=== PATIENT | male | born 1940 | race Caucasian/White ===

== ENCOUNTER 2016-06-24 12:57 | Inpatient (IN) ==
--- NOTE | 2016-06-24 13:43 | EKG Report ---
Stationary ECG Study [facility] ER Test Date: 06/24/2016 1:14:07 PM Pat Name: ENMA CLEARY Department: Room: Gender: M Recruiter Coordinator: : 1940 Requested by: Ned Mireles Order Number: [id number] Reading MD: LUCA ARGUELLES Intervals Coleman Rate: 61 P: -7 NH: 128 QRS: 11 QRSD: 90 T: 37 QT: 360 QTc: 362 Interpretive Statements SINUS RHYTHM at 61 BPM NONSPECIFIC T-WAVE ABNORMALITY Electronically Signed On 06-27-16 16:53:39 CDT by LUCA ARGUELLES [email or web address]
[2016-06-24] MEDS ORDERED: SODIUM CHLORIDE 0.9% 1,000 ML IV STA (13:44)
[2016-06-24 13:50] LABS: Basophils % 0.1 % (0.0-0.8); Eosinophils % 0.1 % (0.00-10.9); Hematocrit 32.4 VOL% (42.0-52.0); Hemoglobin 10.5 GM/DL (14.0-18.0); Immature Granulocytes % 0.8 %; Immature Granulocytes Absolute 0.06 #; Lymphocytes # 0.5 10*3/uL (1.4-4.0); Lymphocytes % 6.6 % (21.2-54.2); Mean Corpuscular HGB Conc 32.4 GM/DL (32-36); Mean Corpuscular Hemoglobin 32 PG (27-34); Mean Corpuscular Volume 97.3 FL (87-102); Mean Platelet Volume 10.2 FL (9.6-12.0); Monocytes # 0.6 10*3/uL (0.11-0.8); Neutrophils # 6.2 10*3/uL (1.4-7.4); Neutrophils % 84.4 % (38.7-73.9); Platelet Count 161 T/CUMM (130-400); Red Blood Count 3.33 MC/CUMM (3.8-5.5); Red Cell Distribution Width 14.4 % (9.3-17.3); White Blood Count 7.4 T/CUMM (4-12)
--- NOTE | 2016-06-24 13:59 | Emergency Department Note ---
Tony Caruso Hilary, am scribing for, and in the presence of, Ned Flanagan MD 13:40. Masha Caruso Charles R, MD, personally performed the services described in this documentation, ascribed by Betzaida Jimenez in my presence, and it is both accurate and complete [id number] . Arrival - Arrival Chief Complaint: Non-Specific Stated Complaint: failure to thrive, hyperglycemia, ED Nursing Triage Note: His son reports decrease eating times one week. He reports his father is more sleepy than usual and not making eye contact when he is spoke to. He has a history of Dementia and does not communicate appropriately, verbally. He reports his glucose at home was 437 at home. He was taken off Metformin years ago; Mode of Arrival: Stretcher Limitations: Altered Mental Status Source: Family (son), RN Notes Reviewed Time Seen by Provider: 06/24/16 13:23 - History of Present Illness HPI Narrative: Pt is a 75 y/o male brought to the ED via EMS for c/o decreased eating which onset a week. History is limited due to the patient having dementia and not speaking, but his son is in the room and gives the history. Pts son states that he has been eating less and earlier this weekend he stopped eating all together. He states that he pretty much sleeps all the time, he doesn't walk, or talk. 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 During exam pt was resisting commands and not responding to questions in any way. Onset (ago): week(s) Allergies/Adverse Reactions: Allergies Allergy/AdvReac Type Severity Reaction Status Date / Time Penicillins Allergy Unknown/Unable Verified 09/27/14 10:13 to obtain Shellfish Allergy Unknown/Unable Verified 09/27/14 10:13 to obtain Home Medications: Home Medications Medication Instructions Recorded Confirmed Type Amlodipine/Atorvastatin 1 tablet PO DAILY 09/27/14 09/27/14 History [Amlodipine-Atorvast 2.5-10 mg] Atorvastatin [Lipitor] 20 mg PO BEDTIME 09/27/14 09/27/14 History Donepezil HCl 10 mg PO BEDTIME 09/27/14 09/27/14 History Escitalopram [Lexapro] 20 mg PO DAILY 09/27/14 09/27/14 History Gabapentin Cap/Tab [Neurontin 100 mg PO BID 09/27/14 09/27/14 History Cap/Tab] HYDROcodone/ACETAMIN 10-325 [[place] 1 tablet PO BID PRN 09/27/14 09/27/14 History 10-325] Modafinil 100 mg PO AC BREAKFAST 09/27/14 09/27/14 History Omeprazole [Prilosec] 20 mg PO DAILY 09/27/14 09/27/14 History Ondansetron Odt Tab [Zofran Odt] 4 mg PO Q6H PRN #6 tablet 09/27/14 Rx Topiramate [Topamax] 50 mg PO DAILY 09/27/14 09/27/14 History Trazodone HCl 100 mg PO BEDTIME 09/27/14 09/27/14 History metroNIDAZOLE TAB [Flagyl Tab] 500 mg PO TID 10 Days 09/27/14 Rx Review of System - Review of System ROS unobtainable: due to dementia 12 point system: reviewed and no additional remarkable complaints except as stated - Review of System Constitutional: Present: weight loss, other (Loss of appetite) Medical,Surgical,& Family Hx - Medical History Cardio: History of: Hypertension Endocrine: History of: Diabetes Mellitus (NIDDM) - Social History Smoking Status: Never smoker Frequency of Alcohol Use: None Type of Drug Use: None Exam Vital Signs: Vital Signs Temperature 98.6 F 06/24/16 13:09 Pulse Rate 66 06/24/16 13:09 Respiratory Rate 14 06/24/16 13:09 Blood Pressure 111/58 06/24/16 13:09 O2 Sat by Pulse Oximetry 99 06/24/16 13:00 - General Exam limited due to: other (Dementia) General appearance: lethargic, other (skinny and dehydrated ) - Head Head exam: Present: atraumatic, normocephalic - Eye Eye exam: Present: normal appearance, PERRL (Pin point pupils), EOMI, other ( Sunken orbitals). Absent: periorbital swelling - ENT ENT exam: Present: mucous membranes dry, other (Yeast on his tongue, poor gag reflex) - Neck Neck exam: Present: full ROM, trachea midline - Chest Chest inspection: Present: symmetric chest wall rise - Respiratory Respiratory exam: Present: normal lung sounds bilaterally - Cardiovascular Cardiovascular exam: Present: normal rhythm, bradycardia - Abdominal Exam Abdominal exam: Present: soft, other (Scaphoid abdomen). Absent: distention - Extremities Exam Extremities exam: Present: full ROM (Resists when legs are lifted up or pulled) - Back Exam Back exam: Present: full ROM - Neurological Exam Neurological exam: Present: CN II-XII intact - Psychiatric Psychiatric exam: Present: flat affect - Skin Skin exam: Present: other (poor skin turgor) Course - Consultations Consultation #1: Hospitalist will admit patient Time: 14:38 Results - Labs CBC & BMP: 06/24/16 13:42 06/24/16 13:42 Lab Results: I have reviewed the patients labs Labs: Laboratory Tests 06/24/16 13:42 WBC 7.4 RBC 3.33 L Hgb 10.5 L Hct 32.4 L Neut % (Auto) 84.4 H Lymph % (Auto) 6.6 L Lymph # (Auto) 0.5 L Disposition Clinical Impression: UTI (urinary tract infection), Failure to thrive, Debility, Confusion, Anorexia , Weight loss Case discussed with: patient, patient's family Disposition: Still a Patient Condition: Guarded Time of Disposition: 14:48
[2016-06-24 14:03] LABS: INR 1.1; PT Patient Result 11.4 SECS
[2016-06-24 14:05] LABS: Apearance,Urine Slightly Hazy (Clear); Bacteria,Urine Occasional /HPF (Few); Bilirubin,Urine Negative (Negative); Blood, Urine Small mg/dL (Negative); Glucose,Urine (UA) >=500 mg/dL (Negative); Ketones,Urine Negative (Negative); Mucus,Urine Occasional /LPF (Occasional); Nitrite,Urine Negative (Negative); Protein,Urine 100 MG/DL; RBC,Urine 11 /HPF (0-4); Urine Color Yellow (Yellow); Urine Specific Gravity 1.016 (1.001-1.035); WBC,Urine 137 /HPF (0-6)
[2016-06-24 14:13] LABS: Ammonia 30 UMOL/L (11-32)
--- NOTE | 2016-06-24 14:16 | XRay Report ---
XR chest 1V portable Indication: Altered mental status. Comparison: Chest x-ray 09/27/2014. Technique: Portable AP chest was performed. Findings: Heart size, mediastinal contour, and hilar structures demonstrate no evidence of acute pathology. Lungs are clear. Bones and soft tissues demonstrate no evidence of acute pathology. Impression: 1. No evidence of acute pathology. 06/24/2016 2:13 PM PROCEDURE INTERPRETED AT [facility] DEPARTMENT OF RADIOLOGY Final Report Signed by: Dr. Renard Murrieta
[2016-06-24 14:19] LABS: Alanine Aminotransferase 66 U/L (16-61); Albumin 2.1 G/DL (3.4-5.0); Alkaline Phosphatase 78 U/L (45-117); Aspartate Amino Transferase 57 U/L (0-37); Bilirubin,Total < 0.39 MG/DL (0.2-1.0); Blood Urea Nitrogen 30 MG/DL (7-18); Calcium 7.9 MG/DL (8.5-10.1); Glucose 257 MG/DL (74-106); Magnesium 2.1 MG/DL (1.8-2.4); Sodium 143 MMOL/L (136-145); Total Protein 5.6 G/DL (6.4-8.3); Troponin I Only < 0.015 NG/ML (0.00-0.045)
--- NOTE | 2016-06-24 14:19 | CT Report ---
Referring physician: Ned Flanagan Exam: CT brain without contrast Date: 06/24/2016 Comparison: None Reason: Alteration of consciousness Technique: Axial images of the head were obtained without the use of contrast. Total DLP was 1286.60 mGy*cm. Findings: Progressive dilatation of the ventricles with no midline displacement. Progressive diffuse cerebral and cerebellar atrophy and several hypodensities. 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 There is no evidence of an acute infarction, recent intracranial hemorrhage or abnormal mass effect. The osseous structures appear intact. The mastoid air cells and visualized paranasal sinuses are clear. Impression: No acute intracranial abnormality is identified. Progressive atrophy and microvascular disease with what may be compensatory dilatation of the ventricles. It is difficult to exclude developing NPH. Chronic left thalamic/basal ganglia lacunar infarcts. The CT exam was performed using one or more of the following dose reduction techniques: Automated exposure control and adjustment of the mA and/or kV according to patient size. PROCEDURE INTERPRETED AT [facility] DEPARTMENT OF RADIOLOGY Final Report Signed by: Dr. Ivette Waldron
[2016-06-24] MEDS ORDERED: LEVOFLOXACIN INJ 500 MG in PREMIX 1 EACH IV STA (14:35)
[2016-06-24] MEDS ORDERED: LEVOFLOXACIN INJ 500 MG in PREMIX 1 EACH IV SCH (15:00)
--- NOTE | 2016-06-24 15:51 | Hospitalist History & Physical ---
Assessment and Plan (1) UTI (urinary tract infection) Status: Acute Assessment and plan: Impression: 1. Possible urinary tract infection. I am somewhat hesitant to make this diagnosis without a fever or leukocytosis in this patient who is incontinent. He may have asymptomatic bacteria in the urine 2. Closed head injury with severe debility 3. Type II DM 4. Hypertension 5. Probable severe malnutrition based on albumin of 2.1 and cachexia 6. Volume depletion Plan: We will obtain cultures and begin empiric antibiotics. Administer IV fluids. Sliding scale for the hyperglycemia. Watch blood pressure closely. I have asked the 2 sons about CODE STATUS. They are going to discuss this with their brother, and try to come up with a decision. This note was completed using [employer] voice recognition software. There may be carbonizer tester errors as a result. Current Visit: Yes Qualifiers: Hematuria presence: without hematuria History of Present Illness Chief complaint: Decrease in level of consciousness History of present illness: Mr. Roa is a 75 year old male He has a history of hypertension and type II DM, and had been on numerous medications for these problems. He also apparently had a smoking history, but all of this changed abruptly in 1986 when he suffered a closed head injury. The sounds report that he has had a gradual diminution of higher cortical functioning, and was diagnosed as having "Alzheimer's" several years ago. Following the head injury, he had a loss of appetite, and was able to discontinue his diabetes medicines as a result of the weight loss. He is continued on the antihypertensives. He had chronic daily headaches that were managed with methadone. He eventually became tired of taking the methadone, and weaned himself off of that. His functional status now is that he spends all day in bed. He is completely dependent on family members for activities of daily living. They report no skin breakdown. About 2 or 3 days ago, he quit eating. His blood sugars have been normal off of all of his medicines, but they were noted to be elevated for the past couple of days. He has not had any fever. He is incontinent of stool and urine, and does not speak much, so it is difficult to elicit any complaints from him. After arrival in the emergency room, he was found to have a "urinary tract infection," and was admitted for management of that. Other pertinent findings on lab testing include mildly elevated transaminases and an albumin of 2.1. He had some lab work about 2 years ago, with normal liver enzymes and a serum albumin of about 3.5. BUN and creatinine at that time were normal, but they are elevated today. Home Medications Medication Instructions Recorded Confirmed Type Amlodipine/Atorvastatin 1 tablet PO DAILY 09/27/14 09/27/14 History [Amlodipine-Atorvast 2.5-10 mg] Atorvastatin [Lipitor] 20 mg PO BEDTIME 09/27/14 09/27/14 History Donepezil HCl 10 mg PO BEDTIME 09/27/14 09/27/14 History Escitalopram [Lexapro] 20 mg PO DAILY 09/27/14 09/27/14 History Gabapentin Cap/Tab [Neurontin 100 mg PO BID 09/27/14 09/27/14 History Cap/Tab] HYDROcodone/ACETAMIN 10-325 [[place] 1 tablet PO BID PRN 09/27/14 09/27/14 History 10-325] Modafinil 100 mg PO AC BREAKFAST 09/27/14 09/27/14 History Omeprazole [Prilosec] 20 mg PO DAILY 09/27/14 09/27/14 History Ondansetron Odt Tab [Zofran Odt] 4 mg PO Q6H PRN #6 tablet 09/27/14 Rx Topiramate [Topamax] 50 mg PO DAILY 09/27/14 09/27/14 History Trazodone HCl 100 mg PO BEDTIME 09/27/14 09/27/14 History metroNIDAZOLE TAB [Flagyl Tab] 500 mg PO TID 10 Days 09/27/14 Rx Allergies Allergy/AdvReac Type Severity Reaction Status Date / Time Penicillins Allergy Unknown/Unable Verified 09/27/14 10:13 to obtain Shellfish Allergy Unknown/Unable Verified 09/27/14 10:13 to obtain Medical,Surgical,& Family Hx - Medical History Cardio: History of: Hypertension Endocrine: History of: Diabetes Mellitus (NIDDM) - Social History Smoking Status: Former smoker Have you smoked in the last 12 months: No Frequency of Alcohol Use: None Type of Drug Use: None Marital Status: Single Lives With:: Children Functional capacity: bed bound Review of systems: Gen.: Significant weight loss over the past several years. Eyes: No glaucoma or cataracts. Ears nose and throat: No change in auditory acuity, sinus problems, nasal allergies, or sore throat. Lungs: No asthma, bronchitis, or pneumonia. COPD diagnosed in the past. Cardiac: No chest pain, myocardial infarction, heart failure, murmur, or rheumatic fever. GI: No liver disease, nausea, vomiting, or diarrhea. : No hematuria, UTI, or stones. Neurologic: No seizures. See history of present illness. Endocrine: No thyroid disease. Hematologic: No anemia or blood dyscrasias. Skin: No rashes or lesions. Musculoskeletal: No significant arthritic complaints. Exam - Constitutional Vitals: Period Temp Pulse Resp BP Sys/Barboza Pulse Ox Last 24 Hr 98.6 F-98.6 F 66-66 14-14 111-111/58-58 99 General: He is a cachectic white man in no distress. HEENT: Pupils are round and reactive. Extraocular muscles are normal. Gaze is conjugate. Fundi were not examined. There is no nasal discharge. Mucous membranes are moist. Neck: Supple, without mass, bruit, or venous distention. Cardiac: Rhythm is regular. The carotids are normal. I don't hear murmur gallop or rub. Peripheral pulses are intact. Lungs: Clear without rales, wheezes, or rubs. Abdomen: Soft and nontender. Bowel sounds are present. No mass palpable. Rectal: Not done. Extremities: No cyanosis, clubbing, or edema. Muscles are wasted in the arms and legs. Skin: No significant rash or lesion. Neurologic: He is asleep but awakens to tactile stimulation. There is some involuntary movements of the muscles in the arms and legs, and some fasciculations of the tongue. Results - Labs CBC & BMP: 06/24/16 13:42 06/24/16 13:42 Lab Results: I have reviewed the past 24 hour labs Labs: Urinalysis shows pyuria. - Diagnostic Findings Procedure: Chest x-ray: image reviewed by me (Chest x-ray looks clear)
[2016-06-24] MEDS ORDERED: LEVOFLOXACIN INJ 100 ML IV ONE (16:12)
[2016-06-24] MEDS ORDERED: DEXTROSE 50% 25 GM/50 ML VIAL IV PRN (17:52)
[2016-06-24] MEDS ORDERED: ONDANSETRON 4 MG/2 ML VIAL IV PRN (17:52)
[2016-06-24] MEDS ORDERED: GLUCAGON 1 MG VIAL IM PRN (17:52)
[2016-06-24] MEDS: SODIUM CHLORIDE 0.9% 1,000 ML IV SCH (18:11)
[2016-06-24] MEDS: INSULIN LISPRO 100 UNIT/ML SUBCUT SCH ×2 (20:36→21:16)
[2016-06-24] MEDS: DESITIN 4OZ/NYSTATIN 15 GRAM MIXTURE PASTE TOP SCH (20:40)
[2016-06-24] MEDS: ENOXAPARIN 40 MG/0.4 ML SYRINGE SUBCUT SCH (21:16)
[2016-06-24] MEDS ORDERED: ACETAMINOPHEN 325 MG TABLET PO PRN (22:53)
[2016-06-24] MEDS: ACETAMINOPHEN 650 MG SUPP RECTAL PRN (23:40)
[2016-06-25] MEDS: SODIUM CHLORIDE 0.9% 1,000 ML IV SCH ×2 (04:43→14:04)
[2016-06-25 06:09] LABS: Basophils % 0.2 % (0.0-0.8); Hemoglobin 9.8 GM/DL (14.0-18.0); Lymphocytes # 0.5 10*3/uL (1.4-4.0); Lymphocytes % 3.1 % (21.2-54.2); Mean Corpuscular HGB Conc 31.6 GM/DL (32-36); Mean Corpuscular Hemoglobin 31 PG (27-34); Mean Corpuscular Volume 97.5 FL (87-102); Mean Platelet Volume 10.1 FL (9.6-12.0); Monocytes # 0.7 10*3/uL (0.11-0.8); Monocytes % 4.5 % (1.7-12.7); Neutrophils # 13.8 10*3/uL (1.4-7.4); Neutrophils % 90.2 % (38.7-73.9); Platelet Count 156 T/CUMM (130-400); Red Blood Count 3.18 MC/CUMM (3.8-5.5); Red Cell Distribution Width 14.6 % (9.3-17.3); White Blood Count 15.3 T/CUMM (4-12)
[2016-06-25 06:32] LABS: Band Neutrophils 7 % (0-10); Elliptocytes Few; Hypochromasia 1+; Lymphocytes 1 % (20-55); Platelet Estimate Normal; Segmented Neutrophils 88 % (50-85); Total Cells Counted 100
[2016-06-25 06:33] LABS: Burr Cells Slight
[2016-06-25 06:51] LABS: Alanine Aminotransferase 51 U/L (16-61); Albumin 1.9 G/DL (3.4-5.0); Alkaline Phosphatase 84 U/L (45-117); Aspartate Amino Transferase 40 U/L (0-37); Blood Urea Nitrogen 28 MG/DL (7-18); Calcium 7.9 MG/DL (8.5-10.1); Cholesterol 60 MG/DL (50-200); Glucose 111 MG/DL (74-106); HDL Cholesterol < 10 MG/DL (40-60); Magnesium 1.9 MG/DL (1.8-2.4); Osmolality,Calculated 298.4 MOS/KG (273-304); Potassium 3.7 MMOL/L (3.5-5.1); Sodium 147 MMOL/L (136-145); Total Protein 5.3 G/DL (6.4-8.3); Triglycerides 158 MG/DL (2-150); VLDL CHOLESTEROL 31.6 MG/DL
[2016-06-25] MEDS: INSULIN LISPRO 100 UNIT/ML SUBCUT SCH ×4 (10:06→21:36)
[2016-06-25] MEDS: DESITIN 4OZ/NYSTATIN 15 GRAM MIXTURE PASTE TOP SCH ×2 (13:22→21:37)
[2016-06-25] MEDS ORDERED: LEVOFLOXACIN INJ 500 MG in PREMIX 1 EACH IV SCH (14:00)
[2016-06-25] MEDS: ACETAMINOPHEN 650 MG SUPP RECTAL PRN (15:55)
--- NOTE | 2016-06-25 16:18 | Hospitalist Progress Note ---
Assessment and Plan - Time spent with patient Time spent with patient: Greater than 30 minutes (1) Acute metabolic encephalopathy Status: Acute Assessment and plan: Most likely due to UTI. Also has dementia. Fall precaution. Treat UTI. Current Visit: Yes (2) UTI (urinary tract infection) Status: Acute Assessment and plan: Change to IV merrem, starting with testing dosage. Current Visit: Yes Qualifiers: Hematuria presence: without hematuria (3) Failure to thrive Status: Acute Assessment and plan: IVF for now, may need speech eval vs PEG tube in future Current Visit: Yes (4) Debility Status: Acute Assessment and plan: Fall precaution Current Visit: Yes (5) Weight loss Status: Acute Assessment and plan: Continue current medical treatment regimen. Current Visit: Yes Hospitalist: Subjective Interval history: No overnight acute event. No fever reported per RN. Sitter in the room. On IVF. On IV antibiotics for UTI. Worsening leukocytosis today. Pt is a 75yo male with debility, HTN DM Closed head injury adm to our hospital on 06/24/16 due to AMS, UTI and poor oral intake. Exam - Constitutional Vitals: Period Temp Pulse Resp BP Sys/Barboza Pulse Ox Last 24 Hr 98.2 F-102.2 F 78-111 12-20 99-139/53-63 94-98 Exam: GENERAL: Lying in bed supine, confused.. HEENT: Pupils equally round and reactive to light, conjunctivae clear. Dry oral mucosa NECK: Supple without mass. HEART: RRR, no murmur. CHEST: Normal shape, fair air movement, no retractions. LUNGS: Clear to auscultation; no rales, rhonchi, or wheezes. ABDOMEN: Soft, nontender, and no hepatosplenomegaly. SKIN: Dry, no rash. NEURO: No gross motor deficits noted. Results - Labs CBC & BMP: 06/25/16 05:33 06/25/16 05:33
[2016-06-25] MEDS: MEROPENEM 1,000 MG in SODIUM CHLORIDE 0.9% 100 ML IV SCH (17:15)
[2016-06-25] MEDS: ENOXAPARIN 40 MG/0.4 ML SYRINGE SUBCUT SCH (21:36)
[2016-06-26] MEDS: SODIUM CHLORIDE 0.9% 1,000 ML IV SCH ×3 (00:47→12:30)
[2016-06-26] MEDS: MEROPENEM 1,000 MG in SODIUM CHLORIDE 0.9% 100 ML IV SCH (04:45)
[2016-06-26 05:59] LABS: Basophils % 0.1 % (0.0-0.8); Hematocrit 29.8 VOL% (42.0-52.0); Hemoglobin 9.5 GM/DL (14.0-18.0); Immature Granulocytes Absolute 0.12 #; Lymphocytes # 0.4 10*3/uL (1.4-4.0); Lymphocytes % 3.8 % (21.2-54.2); Mean Corpuscular HGB Conc 31.9 GM/DL (32-36); Mean Corpuscular Hemoglobin 31 PG (27-34); Mean Corpuscular Volume 98.3 FL (87-102); Mean Platelet Volume 10.7 FL (9.6-12.0); Monocytes # 0.2 10*3/uL (0.11-0.8); Neutrophils # 10.8 10*3/uL (1.4-7.4); Neutrophils % 93.1 % (38.7-73.9); Platelet Count 136 T/CUMM (130-400); Red Blood Count 3.03 MC/CUMM (3.8-5.5); Red Cell Distribution Width 15.1 % (9.3-17.3); White Blood Count 11.6 T/CUMM (4-12)
[2016-06-26 06:12] LABS: Band Neutrophils 13 % (0-10); Burr Cells 2+; Hypochromasia 1+; Lymphocytes 2 % (20-55); Platelet Estimate Decreased; Segmented Neutrophils 82 % (50-85); Target Cells Slight; Total Cells Counted 100
[2016-06-26 06:20] LABS: Calcium 8.2 MG/DL (8.5-10.1); Magnesium 2.2 MG/DL (1.8-2.4); Osmolality,Calculated 303.1 MOS/KG (273-304); Potassium 3.5 MMOL/L (3.5-5.1)
[2016-06-26] MEDS: INSULIN LISPRO 100 UNIT/ML SUBCUT SCH ×4 (07:50→21:16)
[2016-06-26] MEDS: DESITIN 4OZ/NYSTATIN 15 GRAM MIXTURE PASTE TOP SCH ×2 (08:42→21:22)
--- NOTE | 2016-06-26 12:24 | Hospitalist Progress Note ---
Assessment and Plan - Time spent with patient Time spent with patient: Greater than 30 minutes (1) Acute metabolic encephalopathy Status: Acute Assessment and plan: Improving today. Most likely due to UTI. Also has dementia. Fall precaution. Treat UTI with IV merrem. Current Visit: Yes (2) UTI (urinary tract infection) Status: Acute Assessment and plan: Change to IV merrem since yesterday. Continue IV merrem today. Current Visit: Yes Qualifiers: Hematuria presence: without hematuria (3) Failure to thrive Status: Acute Assessment and plan: IVF for now, Consult GI for PEG insertion. Current Visit: Yes (4) Debility Status: Acute Assessment and plan: Fall precaution Current Visit: Yes (5) Weight loss Status: Acute Assessment and plan: Continue current medical treatment regimen. Current Visit: Yes Hospitalist: Subjective Interval history: 06/26/16: Mental status improved. No fever, chest pain, abd pain reported per engineer technical staff. Discussed with family members who desires DNI code status and agree with PEG insertion. Will consult GI. Continue IV merrem. Continue IVF. 06/25/16: No overnight acute event. No fever reported per RN. Sitter in the room. On IVF. On IV antibiotics for UTI. Worsening leukocytosis today, will dc levaquin, change to IV merrem today. Pt is a 75yo male with debility, HTN DM Closed head injury adm to our hospital on 06/24/16 due to AMS, UTI and poor oral intake with failure to thrive Exam - Constitutional Vitals: Period Temp Pulse Resp BP Sys/Barboza Pulse Ox Last 24 Hr 98.3 F-101.3 F 63-94 16-20 109-134/58-66 90-98 Exam: GENERAL: Lying in bed supine, Awake. HEENT: Pupils equally round and reactive to light, conjunctivae clear. Dry oral mucosa NECK: Supple without mass. HEART: RRR, no murmur. CHEST: Normal shape, fair air movement, no retractions. LUNGS: Clear to auscultation; no rales, rhonchi, or wheezes. ABDOMEN: Soft, nontender, and no hepatosplenomegaly. SKIN: Dry, no rash. NEURO: No gross motor deficits noted. Results - Labs CBC & BMP: 06/26/16 05:11 06/26/16 05:11
[2016-06-26] MEDS: DEXT 5% NACL 0.45% KCL 10 MEQ 10 MEQ/1,000 ML BAG IV SCH ×2 (12:29→21:21)
--- NOTE | 2016-06-26 13:36 | Gastrointestinal Consult Note ---
<Padmini Estrella - Last Filed: 06/26/16 13:30> Assessment and Plan (1) Failure to thrive Status: Acute Assessment and plan: 06/26-report of continual decline with recent increased weight loss and minimal oral intake. Family requesting to proceed with PEG placement. Schedule PEG placement tomorrow if consent can be obtained. Plan an addendum to follow by Dr. Foy. Current Visit: Yes History of Present Illness Chief complaint: Failure to thrive History of present illness: Mr. Roa is a 75 year old male who is brought to the hospital with decreased level of consciousness. Patient is unable to provide any history due to mental status. Patient is reported to have a history of hypertension and diabetes mellitus. He is reported to suffered a closed head injury in 1996 and appears to have had cognitive decline since this time with a diagnosis of Alzheimer's disease several years ago. It appears he has had a gradual decline with loss of appetite and weight loss as a result. He is managed for chronic headaches on methadone daily however has weaned himself off of this according to chart review. Patient is reported to be bedbound and is cared for by family members however as of recently has declined more and required complete assistance. There was also question of possible UTI by family members however at this time patient has a urine C&S that is pending with moderate leukocytes in the presence of leukocytosis on admission. CODE STATUS has been discussed with family and they have made him a DO NOT INTUBATE. The family also agrees that for them to continue to build to care for him they have requested a PEG tube replaced. Patient has been started on IV Merrem for his UTI. No anticoagulants noted on his home medication list. He is currently on Lovenox which will be held at this time and will plan to proceed tomorrow with PEG placement if family is willing to sign consent. Home Medications Medication Instructions Recorded Confirmed Type Atorvastatin [Lipitor] 20 mg PO BEDTIME 09/27/14 06/24/16 History Donepezil HCl 10 mg PO BEDTIME 09/27/14 06/24/16 History Escitalopram [Lexapro] 20 mg PO DAILY 09/27/14 06/24/16 History Gabapentin Cap/Tab [Neurontin 100 mg PO BID 09/27/14 06/24/16 History Cap/Tab] HYDROcodone/ACETAMIN 10-325 [[place] 1 tablet PO BID 09/27/14 06/24/16 History 10-325] Modafinil 100 mg PO DAILY 09/27/14 06/24/16 History Omeprazole [Prilosec] 20 mg PO DAILY 09/27/14 06/24/16 History Topiramate [Topamax] 50 mg PO DAILY 09/27/14 06/24/16 History Trazodone HCl 100 mg PO BEDTIME 09/27/14 06/24/16 History Megestrol Liquid [Megace Liquid] 10 ml PO BID 06/24/16 06/24/16 History amLODIPine/BENAZEPRIL 2.5-10 1 capsule PO DAILY 06/24/16 06/24/16 History [Lotrel 2.5-10] Allergies Allergy/AdvReac Type Severity Reaction Status Date / Time Penicillins Allergy Unknown/Unable Verified 09/27/14 10:13 to obtain Shellfish Allergy Unknown/Unable Verified 09/27/14 10:13 to obtain Medical,Surgical,& Family Hx - Medical History Cardio: History of: Hypertension Psychological: No history of: Anxiety Disorders, ADHD, Behavior Problems, Bipolar Disorder, Depression, Previous Suicide Attempt, Psychiatric/Substance Abuse Tx, Schizophrenia, Violent Behavior, Psychiatric Problems Neurology: History of: Dementia Endocrine: History of: Diabetes Mellitus (NIDDM) - Surgical History Cardiac Surgeries: Patient Denies: Cardiac Catheterization Thoracic Surgeries: Patient denies;: Organ Transplant, Lobectomy Neurologic Surgeries: Patient denies: Neurologic Surgery - Family History Family History: Reports;: Family Diabetes, Family Heart Disease - Social History Smoking Status: Former smoker Frequency of Alcohol Use: None Type of Drug Use: None ROS unobtainable: due to mental status Exam - Constitutional Vitals: Period Temp Pulse Resp BP Sys/Barboza Pulse Ox Last 24 Hr 98.3 F-101.3 F 63-94 16-20 109-134/58-66 90-98 General appearance: no acute distress, cachectic - Head Head exam: Present: normal inspection, normocephalic - Eye Eye exam: Present: other (Lids and conjunctive are unremarkable). Absent: scleral icterus - ENT ENT exam: Present: normal exam, normal oropharynx - Neck Neck exam: Present: normal inspection - Respiratory Respiratory exam: Present: clear to auscultation bilaterally. Absent: rales, rhonchi, wheezes - Cardiovascular Cardiovascular exam: Present: regular rate and rhythm. Absent: diastolic murmur , JVD, systolic murmur - GI/Abdominal GI/Abdominal exam: Present: normal bowel sounds, soft. Absent: ascites, distended, mass, organomegaly, tenderness - Extremities Exam Extremities exam: Present: normal inspection, full ROM - Back Exam Back exam: Present: normal inspection - Neurological Exam Neurological exam: Present: alert, oriented X3 - Psychiatric Psychiatric exam: Present: normal affect, normal mood - Skin Skin exam: Present: normal color, warm, dry Results - Labs CBC & BMP: 06/26/16 05:11 06/26/16 05:11 Lab Results: I have reviewed the past 24 hour labs <Mu Foy - Last Filed: 06/26/16 18:44> History of Present Illness History of present illness: Mr. Roa is a 75 year old male Exam - Constitutional Vitals: Period Temp Pulse Resp BP Sys/Barboza Pulse Ox Last 24 Hr 98.3 F-99.5 F 51-89 18-20 112-134/60-66 90-99 Results - Labs CBC & BMP: 06/26/16 05:11 06/26/16 05:11
[2016-06-27] MEDS: DEXT 5% NACL 0.45% KCL 10 MEQ 10 MEQ/1,000 ML BAG IV SCH ×2 (06:06→18:29)
[2016-06-27 07:19] LABS: Basophils % 0.1 % (0.0-0.8); Hematocrit 29.5 VOL% (42.0-52.0); Hemoglobin 9.4 GM/DL (14.0-18.0); Immature Granulocytes % 0.9 %; Lymphocytes # 0.3 10*3/uL (1.4-4.0); Mean Corpuscular HGB Conc 31.9 GM/DL (32-36); Mean Corpuscular Hemoglobin 31 PG (27-34); Mean Platelet Volume 10.8 FL (9.6-12.0); Monocytes # 0.3 10*3/uL (0.11-0.8); Monocytes % 3.1 % (1.7-12.7); Neutrophils # 10.4 10*3/uL (1.4-7.4); Neutrophils % 92.9 % (38.7-73.9); Platelet Count 133 T/CUMM (130-400); Red Blood Count 3.04 MC/CUMM (3.8-5.5); Red Cell Distribution Width 15.3 % (9.3-17.3); White Blood Count 11.1 T/CUMM (4-12)
[2016-06-27 07:20] LABS: INR 1.1; PT Patient Result 11.2 SECS; Partial Thromboplastin Time 30.1 SECS (0-40)
[2016-06-27 07:31] LABS: Magnesium 2.1 MG/DL (1.8-2.4); Osmolality,Calculated 308.1 MOS/KG (273-304); Potassium 3.4 MMOL/L (3.5-5.1)
[2016-06-27 07:49] LABS: Band Neutrophils 1 % (0-10); Lymphocytes 3 % (20-55); Platelet Estimate Normal; Segmented Neutrophils 94 % (50-85); Total Cells Counted 100
[2016-06-27 07:50] LABS: Elliptocytes Few; Hypochromasia 1+
[2016-06-27] MEDS: INSULIN LISPRO 100 UNIT/ML SUBCUT SCH ×4 (09:42→21:10)
[2016-06-27] MEDS: DESITIN 4OZ/NYSTATIN 15 GRAM MIXTURE PASTE TOP SCH ×2 (09:42→22:05)
[2016-06-27] MEDS ORDERED: LEVOFLOXACIN INJ 500 MG in PREMIX 1 EACH IV ONE (09:52)
[2016-06-27] MEDS ORDERED: PROPOFOL 200 MG/20 ML VIAL IV ONE (12:22)
[2016-06-27] MEDS ORDERED: LIDOCAINE 2% 5 ML VIAL ONE (12:22)
[2016-06-27] MEDS ORDERED: GLYCOPYRROLATE 0.4 MG/2 ML VIAL ONE (12:22)
--- NOTE | 2016-06-27 12:40 | History and Physical Update ---
History and Physical Update - Physical Exam Mental Status: other (Noncommunicative) Heart: regular rate and rhythm Lung: clear to auscultation Abdomen: within normal limits Vitals: within normal limits
--- NOTE | 2016-06-27 12:43 | Operative Note ---
Date of procedure: 06/27/16 Pre-op diagnosis: Malnutrition Procedure: EGD with percutaneous endoscopic gastrostomy tube placement 75-year-old gentleman with malnutrition now for upper endoscopy and PEG tube placement. Informed consent was obtained from his family. He was sedated with MAC anesthesia per anesthesia protocol. Patient placed in the supine position head of bed elevated 30. The Olympus flexible video upper endoscope was inserted into the oral cavity under direct vision the esophagus was intubated. Findings: Esophagus-normal proximal mid esophageal mucosa distal esophagus unremarkable no esophagitis strictures are seen. Stomach-normal insufflation normal mucosa to direct retroflexed views of the body, fundus, cardia and antrum the stomach. Pylorus-normal Duodenum-normal for the bulb duodenum to the third portion of duodenum. Scope withdrawn back to the stomach and appropriate in the anterior abdominal wall was transilluminated finger protrusion localize. Area was prepped and draped in sterile fashion Nestabs 1/2 cc lidocaine. Finder needle was inserted stomach endoscopically visualized and removed. Subsequently a small scalpel incision was made through the skin through this an 18-gauge Angiocath was inserted in the stomach guidewire was grasped with a polypectomy snare brought out via the mouth. Using pull traction technique the new PEG tube was pulled into appropriate position without difficulty. Postop diagnosis: 1. Successful PEG tube placement plan routine PEG care. Anesthesia: MAC Surgeon / Physician: Mu Foy Estimated blood loss: none Specimens: none sent Condition: stable Disposition: post procedure unit Results - Labs CBC & BMP: 06/27/16 04:39 06/27/16 04:39 Discharge Plan - Discharge Medications No Action Omeprazole [Prilosec] 20 mg PO DAILY Trazodone HCl 100 mg PO BEDTIME Modafinil 100 mg PO DAILY Donepezil HCl 10 mg PO BEDTIME HYDROcodone/ACETAMIN 10-325 [Greenock 10-325] 1 tablet PO BID Escitalopram [Lexapro] 20 mg PO DAILY Gabapentin Cap/Tab [Neurontin Cap/Tab] 100 mg PO BID Atorvastatin [Lipitor] 20 mg PO BEDTIME Topiramate [Topamax] 50 mg PO DAILY Megestrol Liquid [Megace Liquid] 10 ml PO BID amLODIPine/BENAZEPRIL 2.5-10 [Lotrel 2.5-10] 1 capsule PO DAILY - Follow Up or Referral - Forms/Instructions
--- NOTE | 2016-06-27 13:34 | Anesthesia Post-Op ---
Anesthesia Post OP - Post Ansesthetic Evaluation Patient seen in post op: Yes Resp: within normal limits CV: within normal limits Mental: within normal limits Temp: within normal limits [id number]: within normal limits Nausea and Vomiting: within normal limits Pain: within normal limits
[2016-06-27] MEDS: POTASSIUM CHLORIDE RIDER 10 MEQ in PREMIX 1 EACH IV PRN ×3 (15:50→18:28)
--- NOTE | 2016-06-27 16:33 | Hospitalist Progress Note ---
Assessment and Plan (1) Severe sepsis Status: Acute Assessment and plan: Patient did that isolate Proteus mirabilis in both the urine and blood. He was admitted here with altered mental status and acute on chronic. There was also mild acute renal failure which is now improving. Antibiotics given is only levofloxacin. I will add aztreonam 1 g IV every 8 hours. And is allergic to penicillin. Type of allergy is unknown. Current Visit: Yes (2) UTI (urinary tract infection) Status: Acute Assessment and plan: See above Current Visit: Yes Qualifiers: Hematuria presence: without hematuria (3) Debility Status: Acute Assessment and plan: Patient should have physical therapy and occupational therapy. Current Visit: Yes (4) Acute metabolic encephalopathy Status: Acute Current Visit: Yes Hospitalist: Subjective Interval history: Patient has been seen and examined. He has poor means of communication significant dementia. Admitted to the hospital with the poor oral intake patient now has a PEG tube nutrition. Medications can also be put through there. Patient was a septic on admission with gram-negative septicemia isolated Proteus mirabilis in the urine and in the blood. On his vital signs he is afebrile with only low-grade fevers in the last 48 hours. Exam - Constitutional Vitals: Period Temp Pulse Resp BP Sys/Barboza Pulse Ox Last 24 Hr 97.9 F-99.9 F 47-79 16-24 122-155/65-83 97-100 General appearance: under weight - Head Head exam: Present: normocephalic, atraumatic - Eye Eye exam: Present: EOMI Pupils: Present: MAGALYS - ENT ENT exam: Present: other (She has no teeth) - Neck Neck exam: Present: normal inspection - Respiratory Respiratory exam: Present: clear to auscultation bilaterally - Cardiovascular Cardiovascular exam: Present: regular rate and rhythm - GI/Abdominal GI/Abdominal exam: Present: normal bowel sounds, soft, other (Is a new PEG in place) - Extremities Exam Extremities exam: Present: other (Generalized with) - Neurological Exam Neurological exam: Present: other (Dementia) - Psychiatric Psychiatric exam: Present: other (Dementia) - Skin Skin exam: Present: normal color, warm, dry, other (And has new PEG in place) Results - Labs CBC & BMP: 06/27/16 04:39 06/27/16 04:39 Lab Results: I have reviewed the past 24 hour labs (Noted is hypokalemia with a normal magnesium and is pending supplementation right now. Repeat BMP and mag in the morning) Quality Measures - VTE Contraindication to Pharmacological VTE Prophylaxis: High Risk of Bleeding
[2016-06-27] MEDS ORDERED: AZTREONAM 1,000 MG VIAL IM SCH (17:00)
[2016-06-27 18:43] LABS: Apearance,Urine CLOUDY (Clear); Bilirubin,Urine Negative (Negative); Blood, Urine Moderate mg/dL (Negative); Glucose,Urine (UA) Negative (Negative); Hyaline Casts,Urine 1 /LPF (0-3); Ketones,Urine Negative (Negative); Nitrite,Urine Negative (Negative); Protein,Urine 30 MG/DL; RBC,Urine 24 /HPF (0-4); Urine Color Yellow (Yellow); Urine Specific Gravity 1.011 (1.001-1.035); Urine Urobilinogen < 2.0 EU/DL (0.2-1.0); WBC,Urine 113 /HPF (0-6)
[2016-06-27] MEDS: AZTREONAM 1,000 MG in SODIUM CHLORIDE 0.9% 100 ML IV SCH (19:51)
[2016-06-28] MEDS: DEXT 5% NACL 0.45% KCL 10 MEQ 10 MEQ/1,000 ML BAG IV SCH (03:46)
[2016-06-28] MEDS: AZTREONAM 1,000 MG in SODIUM CHLORIDE 0.9% 100 ML IV SCH ×3 (03:48→21:15)
[2016-06-28 05:44] LABS: Calcium 8.1 MG/DL (8.5-10.1); Osmolality,Calculated 300.3 MOS/KG (273-304); Potassium 3.7 MMOL/L (3.5-5.1)
[2016-06-28] MEDS: INSULIN LISPRO 100 UNIT/ML SUBCUT SCH ×4 (09:30→21:15)
[2016-06-28] MEDS: DESITIN 4OZ/NYSTATIN 15 GRAM MIXTURE PASTE TOP SCH ×2 (09:31→21:16)
--- NOTE | 2016-06-28 10:57 | Hospitalist Progress Note ---
<Winsome Max - Last Filed: 06/28/16 10:53> Assessment and Plan - Time spent with patient Time spent with patient: Less than 30 minutes (1) UTI (urinary tract infection) Status: Acute Assessment and plan: Mr. Roa 75-year-old white male with history of severe head injury admitted to the ED with failure to thrive and UTI with accompanied positive blood cultures. Patient's care has been coordinated with Dr. Tinsley and further recommendations to follow. Failure to thrive--Patient had PEG tube placed yesterday and PEG feedings have started this morning. Patient seems to be tolerating these so far. Will add free water to tube feedings. UTI and positive blood cultures--repeat UA yesterday shows large leukocytes. Patient has been started on aztreonam and will continue Levaquin. Hypernatremia--this is mild and will increase free water to patient's PEG feeds. We will also start him on half-normal saline infusion. Diabetes--patient's blood sugars are fairly well controlled, running from 116- 127 in the last 2 days. Will continue sliding scale insulin and monitor Hypokalemia--resolved Current Visit: Yes Qualifiers: Hematuria presence: without hematuria (2) Failure to thrive Status: Acute Current Visit: Yes (3) Diabetes Status: Acute Current Visit: Yes (4) Hypernatremia Status: Acute Current Visit: Yes (5) Hypokalemia Status: Acute Current Visit: Yes Hospitalist: Subjective Interval history: Patient is awake and alert this morning with his son present. He is not answering any questions or nodding his head today. He does not appear to be in any distress. His PEG feedings were started this morning and patient is tolerating these at this time. Exam - Constitutional Vitals: Period Temp Pulse Resp BP Sys/Barboza Pulse Ox Last 24 Hr 98 F-99.6 F 51-90 16-24 116-155/55-77 94-99 Exam: 75-year-old white male, no distress, awake but not responsive to answers today Son is present Chest clear CV regular rate and rhythm Abdomen soft and nontender, PEG tube intact Extremities no edema Results - Labs CBC & BMP: 06/27/16 04:39 06/28/16 04:37 Lab Results: I have reviewed the past 24 hour labs Quality Measures - VTE Contraindication to Pharmacological VTE Prophylaxis: High Risk of Bleeding <Nicho Tinsley - Last Filed: 06/28/16 11:19> Assessment and Plan (1) Severe sepsis Status: Acute Current Visit: Yes (2) UTI (urinary tract infection) Status: Acute Current Visit: Yes Qualifiers: Hematuria presence: without hematuria (3) Debility Status: Acute Current Visit: Yes (4) Acute metabolic encephalopathy Status: Acute Current Visit: Yes Hospitalist: Subjective Interval history: Patient was also seen by me and evaluated. I agree with all the information above. Continue to observe the patient he on antibiotics. Exam - Constitutional Vitals: Period Temp Pulse Resp BP Sys/Barboza Pulse Ox Last 24 Hr 98 F-99.6 F 51-90 16-24 116-155/55-77 94-99 Results - Labs CBC & BMP: 06/27/16 04:39 06/28/16 04:37
[2016-06-28] MEDS: LEVOFLOXACIN INJ 500 MG in PREMIX 1 EACH IV SCH (11:23)
[2016-06-28] MEDS: SODIUM CHLORIDE 0.45% 1,000 ML IV SCH ×2 (13:00→23:44)
--- NOTE | 2016-06-28 14:18 | Gastrointestinal Progress Note ---
Assessment and Plan - Time spent with patient Time spent with patient: Greater than 30 minutes (1) PEG (percutaneous endoscopic gastrostomy) status Status: Acute Current Visit: Yes (2) Other specified counseling Status: Acute Current Visit: Yes Exam (Progress Note) - Constitutional Vitals: Period Temp Pulse Resp BP Sys/Barboza Pulse Ox Last 24 Hr 98.0 F-99.6 F 51-90 16-20 116-148/55-71 94-99 Results - Labs CBC & BMP: 06/27/16 04:39 06/28/16 04:37 Note Addendum: PLEASE NOTE -- automatic citation of patient information is unavoidable in this electronic note. I have made a reasonable effort to review the information cited , but it is not a part of my evaluation, impression, or recommendation unless specifically discussed in the dictated text that follows. As well, voice recognition software was used in the creation of this clinical note. Reasonable effort was made to identify and correct gross errors. Despite proofreading, errors in lamp shade maker may be present, including nonsense verbiage at times. If you encounter such an error, please contact me at [phone] for discussion and correction. -- Callie Chief complaint: PEG tube follow up Subjective: the patient is a 75-year-old male seen for follow-up of PEG tube placement. The patient underwent placement yesterday with Dr. Foy. The PEG tube has been used successfully without evidence of complication. The patient is unable to provide a medical history due to long-standing cognitive decline. Medications: Tylenol, Lovenox, Humalog, levofloxacin, Zofran, potassium chloride , 1/2NS infusion Review of Symptoms: patient was unable to provide a review of systems Physical examination: Vital Signs: Current vital signs reviewed. General Appearance: lying in bed. Comfortable. Head: Normocephalic. Eyes: no scleral icterus. No scleral injection. No conjunctival pallor. Oral Cavity: Odor of breath was normal. No drooling was observed. Lips showed no abnormalities. Lungs: Respiration rhythm and depth was normal. Cardiovascular: Heart rate and rhythm were normal. Abdomen: abdomen was not distended. Abdominal auscultation revealed no abnormalities. Ascites was not discovered. Abdominal palpation revealed no tenderness and no hepatosplenomegaly. They PEG tube was in place with adequate axial and torsional freedom of movement. There was no evidence of bleeding, disruption, or infection. Musculoskeletal System: musculoskeletal system was grossly normal. Neurological: chronic cognitive decline Skin: Gen. appearance was normal. Color and pigmentation were normal. No skin lesions were appreciated. Laboratory: no new laboratories today Radiology: reviewed with no pertinent changes noted. Impressions: 1. PEG placement -- no evidence of complication. Okay to proceed with routine use of appliance. 2. Patient Counseling: Medical Management: Patient seen for greater than 30 minutes. Greater than 50% of this time was spent counseling regarding differential diagnosis, likely diagnosis,, diagnostic and therapeutic options, risks, benefits, and alternatives to procedures and medications, informed consent, and plan of care generally. Patient has expressed understanding and wishes to proceed. Recommendations: -- okay to proceed with routine use of appliance -- we will sign off. Please contact us for further needs.
[2016-06-28] MEDS: POTASSIUM CHLORIDE RIDER 10 MEQ in PREMIX 1 EACH IV PRN (18:33)
[2016-06-29] MEDS: POTASSIUM CHLORIDE RIDER 10 MEQ in PREMIX 1 EACH IV PRN (00:48)
[2016-06-29] MEDS: AZTREONAM 1,000 MG in SODIUM CHLORIDE 0.9% 100 ML IV SCH ×3 (04:50→20:44)
[2016-06-29] MEDS: DESITIN 4OZ/NYSTATIN 15 GRAM MIXTURE PASTE TOP SCH ×2 (08:59→22:46)
[2016-06-29] MEDS: INSULIN LISPRO 100 UNIT/ML SUBCUT SCH ×4 (08:59→21:03)
[2016-06-29] MEDS: LEVOFLOXACIN INJ 500 MG in PREMIX 1 EACH IV SCH (11:14)
--- NOTE | 2016-06-29 13:20 | Hospitalist Progress Note ---
Assessment and Plan (1) Severe sepsis Status: Acute Assessment and plan: Patient did that isolate Proteus mirabilis in both the urine and blood. He was admitted here with altered mental status and acute on chronic. There was also mild acute renal failure which is now improving. Antibiotics given is only levofloxacin. I have him on aztreonam 1 g IV every 8 hours besides the levofloxacin. And is allergic to penicillin. Type of allergy is unknown. Current Visit: Yes (2) UTI (urinary tract infection) Status: Acute Assessment and plan: See above Current Visit: Yes Qualifiers: Hematuria presence: without hematuria (3) Debility Status: Acute Assessment and plan: Patient should have physical therapy and occupational therapy. Current Visit: Yes (4) Acute metabolic encephalopathy Status: Acute Current Visit: Yes Hospitalist: Subjective Interval history: Mr. Jameson has been seen and examined chart has been reviewed. Admitted to the hospital with gram-negative bacteremia failure to thrive. Also did have the bacteria in the urine. Is feeling well on current antibiotics; that include aztreonam 1 g every 8 hours and levofloxacin 500 mg IV daily. Repeat urine is going to be done tomorrow alongside morning chemistry and CBC Exam - Constitutional Vitals: Period Temp Pulse Resp BP Sys/Barboza Pulse Ox Last 24 Hr 97.1 F-99.1 F 53-66 18-20 124-154/63-85 98-100 General appearance: under weight - Head Head exam: Present: normocephalic, atraumatic, other (Edentulous) - Eye Eye exam: Present: EOMI Pupils: Present: MAGALYS - Neck Neck exam: Present: other (No JVD no adenopathy midline trachea) - Respiratory Respiratory exam: Present: clear to auscultation bilaterally - Cardiovascular Cardiovascular exam: Present: regular rate and rhythm - GI/Abdominal GI/Abdominal exam: Present: normal bowel sounds, soft - Extremities Exam Extremities exam: Present: other (Generalized weakness) - Neurological Exam Neurological exam: Present: CN II-XII intact, other (And is awake but no means of communication severe dementia) - Psychiatric Psychiatric exam: Present: other (Dementia) - Skin Skin exam: Present: normal color, warm, dry Results - Labs CBC & BMP: 06/27/16 04:39 06/28/16 04:37 Lab Results: I have reviewed the past 24 hour labs Quality Measures - VTE Contraindication to Pharmacological VTE Prophylaxis: High Risk of Bleeding
[2016-06-29] MEDS: SODIUM CHLORIDE 0.45% 1,000 ML IV SCH ×2 (17:41→17:42)
[2016-06-30] MEDS: SODIUM CHLORIDE 0.45% 1,000 ML IV SCH ×4 (04:31→20:39)
[2016-06-30] MEDS: AZTREONAM 1,000 MG in SODIUM CHLORIDE 0.9% 100 ML IV SCH ×3 (04:31→20:37)
[2016-06-30 07:05] LABS: Calcium 7.5 MG/DL (8.5-10.1); Magnesium 1.9 MG/DL (1.8-2.4); Osmolality,Calculated 287.1 MOS/KG (273-304); Phosphorous 2.3 MG/DL (2.5-4.9); Potassium 3.7 MMOL/L (3.5-5.1); Prealbumin 9.8 MG/DL (20-40)
[2016-06-30] MEDS: INSULIN LISPRO 100 UNIT/ML SUBCUT SCH ×4 (07:55→20:38)
[2016-06-30] MEDS: DESITIN 4OZ/NYSTATIN 15 GRAM MIXTURE PASTE TOP SCH ×2 (09:59→20:38)
[2016-06-30] MEDS: LEVOFLOXACIN INJ 500 MG in PREMIX 1 EACH IV SCH (10:47)
--- NOTE | 2016-06-30 14:03 | Hospitalist Progress Note ---
Assessment and Plan (1) Severe sepsis Status: Acute Assessment and plan: Patient did that isolate Proteus mirabilis in both the urine and blood. He was admitted here with altered mental status and acute on chronic. There was also mild acute renal failure which is now improving. Patient has had enough IV antibiotics at this point. Can switch him to levofloxacin through the PEG alone. She will be discharged home tomorrow on 5 days of levofloxacin. The urine is clean Current Visit: Yes (2) UTI (urinary tract infection) Status: Acute Assessment and plan: See above Current Visit: Yes (3) Debility Status: Acute Assessment and plan: Patient should have physical therapy and occupational therapy has been afforded the patient here. This may need to be continued as an outpatient with home health. Current Visit: Yes (4) Acute metabolic encephalopathy Status: Acute Current Visit: Yes Hospitalist: Subjective Interval history: Patient has been seen and examined. He is incommunicado. Admitted to the hospital with dehydration electrolyte disturbance failure to thrive. Still with found him to have bacterial infection in the urine and blood he has received enough antibiotics to go home this point. His allergies to penicillin and shellfish.The Proteus he had was sensitive to almost oral antibiotic. Patient can be sent home with levofloxacin to finish up treatment of 5 days. This patient depends on others for management of acute of daily living her son has to drive him home he needs home health and home aches. All these are arranged. Unfortunately the son can only get here tomorrow to pick him up. He is alert awake this evening. I will switch antibiotic to oral today with anticipation of discharge tomorrow. Exam - Constitutional Vitals: Period Temp Pulse Resp BP Sys/Barboza Pulse Ox Last 24 Hr 98.1 F-99.7 F 59-79 12-20 111-152/59-109 97-100 General appearance: under weight - Head Head exam: Present: other (Temporal wasting) - Eye Eye exam: Present: EOMI Pupils: Present: MAGALYS - ENT ENT exam: Present: other (Patient is edentulous) - Neck Neck exam: Present: normal inspection - Respiratory Respiratory exam: Present: clear to auscultation bilaterally - Cardiovascular Cardiovascular exam: Present: other (The presence of ectopic beats) - GI/Abdominal GI/Abdominal exam: Present: normal bowel sounds, soft, other (PEG present) - Extremities Exam Extremities exam: Present: full ROM - Neurological Exam Neurological exam: Present: alert, oriented X3, other (Severe dementia) - Psychiatric Psychiatric exam: Present: other (Severe dementia) - Skin Skin exam: Present: normal color, warm, dry Results - Labs CBC & BMP: 06/27/16 04:39 06/30/16 05:12 Lab Results: I have reviewed the past 24 hour labs (Noted hyperchloremia which should normalize over time alongside the bicarbonate concentration we will also normalize low bicarbonate is secondary to an anion shift) Quality Measures - VTE Contraindication to Pharmacological VTE Prophylaxis: High Risk of Bleeding
--- NOTE | 2016-06-30 14:14 | Discharge Summary ---
Hospital Course - Hospital Course Hospital Course: Mr. Roa is a 75 yr old male patient with a hx of htn, dementia, dm, and close head injury that was brought to the ED by his son for reports of an absence of appetite. The report was that after patient's head injury in there was a decline in appetite, decrease in communication and responsiveness and a significant weight loss. Recently, the patient (who is bed bound) stopped eating completely and was brought in for eval. Upon arrival to the ED, the patient was diagnosed with an UTI and admitted for treatment. Pt. found to have bacteria in urine and was treated with IV antibiotics. During the stay, the patient underwent peg tube placement by Dr. Ledesma which was successful. Pt. tolerated well. The patient improved and is stable today. [facility] MD to follow. Discharge Plan - Discharge Data Disposition: Disch To Home/Self Care - Discharge Medications No Action Omeprazole [Prilosec] 20 mg PO DAILY Trazodone HCl 100 mg PO BEDTIME Modafinil 100 mg PO DAILY Donepezil HCl 10 mg PO BEDTIME HYDROcodone/ACETAMIN 10-325 [[place]st 10-325] 1 tablet PO BID Escitalopram [Lexapro] 20 mg PO DAILY Gabapentin Cap/Tab [Neurontin Cap/Tab] 100 mg PO BID Atorvastatin [Lipitor] 20 mg PO BEDTIME Topiramate [Topamax] 50 mg PO DAILY Megestrol Liquid [Megace Liquid] 10 ml PO BID amLODIPine/BENAZEPRIL 2.5-10 [Lotrel 2.5-10] 1 capsule PO DAILY - Follow Up or Referral - Forms/Instructions Instructions: How to Use and Care for Your PEG Tube (DC), Sepsis (DC), Chronic Dysphagia (DC) Exam - Constitutional Vitals: Period Temp Pulse Resp BP Sys/Barboza Pulse Ox Last 24 Hr 98.1 F-99.7 F 59-79 12-20 111-152/59-109 97-100 Discharge Results Labs on day of discharge: Labs from last 24 hours 06/30/16 06/30/16 06/30/16 11:51 07:09 05:12 Sodium 142 Potassium 3.7 Chloride 113 H Carbon Dioxide 19 L Anion Gap 13.7 BUN 20 H Creatinine 0.90 GFR Calculation 84 BUN/Creatinine Ratio 22.00 H Glucose 127 H POC Glucose 231 H 109 H Calculated Osmolality 287.1 Calcium 7.5 L Phosphorus 2.3 L Magnesium 1.9 Prealbumin 9.8 L 06/29/16 06/29/16 20:43 15:59 Sodium Potassium Chloride Carbon Dioxide Anion Gap BUN Creatinine GFR Calculation BUN/Creatinine Ratio Glucose POC Glucose 240 H 70 L Calculated Osmolality Calcium Phosphorus Magnesium Prealbumin DS: Provider Date of admission: 06/24/16 14:40 Primary care physician: . No PCP Attending physician on admission: Allan Sawyer MD Consults: 06/24/16 14:54 Consult to Pharmacy [CONS] Routine Reason for Pharmacy Consult: Adjust Meds Renal Funct 06/24/16 18:09 Consult to Dietitian [CONS] Routine Reason for Dietitian: Diet Recommendations 06/26/16 12:11 Consult to Physician [CONS] Routine Comment: Peg tube placement Consulting Provider: Mu Foy Person Notified: Padmini Estrella NP Date Notified: 06/26/16 Time Notified: 12:13 06/27/16 12:43 Consult to Dietitian [CONS] Routine Reason for Dietitian: TF-Initiate/Manage Consult Comment: Tube feeding recommendations 06/27/16 13:28 Consult to Case Mgmt/Social Srvs [CONS] Routine Reason for Case Mgmt/Social Srvs: Home Health Consult Comment: set up tube feedings for home use Discharging clinician: Kristine Piedra NP
[2016-07-01] MEDS: AZTREONAM 1,000 MG in SODIUM CHLORIDE 0.9% 100 ML IV SCH (03:58)
[2016-07-01] MEDS: INSULIN LISPRO 100 UNIT/ML SUBCUT SCH (08:35)
[2016-07-01] MEDS: DESITIN 4OZ/NYSTATIN 15 GRAM MIXTURE PASTE TOP SCH (09:26)
[2016-07-01 09:44] VITALS: BP 110/60
[2016-07-01] MEDS: SODIUM CHLORIDE 0.45% 1,000 ML IV SCH (10:40)
--- NOTE | 2016-07-03 08:37 | Physician Query Form ---
CLICK EDIT DOCUMENT TO SELECT QUERY ANSWER --> OK --> SIGN Samanta Sampson RN Clinical Farm Mortgage Agent W) [phone] (f) [phone] [email or web address] PROVIDERS: Make your selection(s) from the choices in EACH section by typing an "x" and enter comments in the comment section. Please use your independent medical judgment in providing your response. This request does not imply that any particular answer is desired or expected. CLINICAL INDICATORS: (Providers should not edit this section) Height: 5ft 11in Weight: 123 lbs Clinical Support Specialist BMI: 17.6 Nutritional supplements:Two Ayo bolus feedings Other clinical notes:"Probable severe malnutrition based on albumin of 2.1" and "Report is progressive malnutrition from Alzheimer's disease and dementia. acute failure to thrive". Based on the above, which following choice most accurately represents the patient's nutritional status? ( x) Malnutrition ( ) mild ( ) moderate (x ) severe ( ) Protein calorie malnutrition ( ) mild ( ) moderate ( ) severe ( ) Emaciation due to malnutrition ( ) No nutritional deficiency ( ) Other, please specify: ( ) Clinically unable to determine Mild Malnutrition (BMI < 18.5, % Normal Body Weight 85-95%) Moderate Malnutrition (BMI < 17, % Normal Body Weight 75-85%) Severe Malnutrition (BMI < 16, % Normal Body Weight < 75%) Source: Felisa COMMENTS: Use of terms such as suspected, likely, or probable (associated with a specific diagnosis that is being evaluated, monitored, or treated as if it exists) are acceptable and can be restated in the discharge summary if not ruled out. MTDD
== END 2016-07-01 11:20 | disposition home health service (06) | DRG 871 ==
LOC: EDUNIT# → N.ED 12:57 → N.EDINP 14:40 → SUATTDRO 14:40 → N.EDINP 17:00 → N.5E 19:28
PROVIDERS: ADMIT Internal Medicine Geriatric Medicine; ATTEND Internal Medicine Cardiovascular Disease
PROC: EGDWPEG (ICD-10-PCS; 2016-06-27 09:05)